=== PATIENT | male | born 1950 | race Two or more races ===

== ENCOUNTER 2022-11-06 12:08 | Emergency (ER) | payer OTHER ==
[~2022-11-06] VITALS: Ht 165.1 cm; Wt 84.4 kg
[2022-11-06] MEDS ORDERED: FOLIC ACID1 MG PO (12:27)
[2022-11-06] MEDS ORDERED: LOSARTAN POTAS100 MG PO (12:27)
[2022-11-06] MEDS ORDERED: ROSUVASTATIN CAL5 MG PO (12:28)
[2022-11-06] MEDS ORDERED: METHOTREXATE2.5 MG PO (12:28)
== END 2022-11-06 17:36 | disposition home or self-care (01) ==
LOC: ER 12:08
DX: R51.9 Headache, unspecified (principal); E78.00 Pure hypercholesterolemia, unspecified; I10 Essential (primary) hypertension; M06.8A Other specified rheumatoid arthritis, other specified site

== ENCOUNTER 2022-12-26 13:25 | Emergency (ER) | payer OTHER ==
[~2022-12-26] VITALS: Ht 162.6 cm; Wt 79.8 kg
[~2022-12-26 13:25] MED LIST: FOLIC ACID1 MG PO; LOSARTAN POTAS100 MG PO; METHOTREXATE2.5 MG PO; ROSUVASTATIN CAL5 MG PO
[2022-12-26] MEDS ORDERED: ADVIL DUAL ACT1 EACH PO (17:44)
== END 2022-12-26 18:07 | disposition home or self-care (01) ==
LOC: ER 13:25
DX: M54.50 Low back pain, unspecified (principal); M19.90 Unspecified osteoarthritis, unspecified site; I10 Essential (primary) hypertension; M51.36 Other intervertebral disc degeneration, lumbar region